=== PATIENT | female | born 1940 | race Caucasian/White ===

== ENCOUNTER 2024-03-27 08:02 | Emergency (ER) | payer MEDICARE, MEDICAID, SELFPAY ==
[2024-03-27 08:43] VITALS: BP 152/60; PULSE 97; RESP 18; TEMP 36.6; O2SAT 94
[2024-03-27 08:46] VITALS: BMI 30.1
--- NOTE | 2024-03-27 08:59 | XR_ITS ---
Examination: PA lateral chest 2 views Technique: Upright PA lateral chest 2 views Exam date and time: March 27, 2024 0918 hrs. Comparison May 06, 2014 Indications: Coughing beginning 15 days ago. Findings: Suspicious for early right upper lobe pneumonia Minor prominence left ventricle Moderate osteopenia Impression: Suspicious for early right upper lobe pneumonia
--- NOTE | 2024-03-27 09:00 | PD.EDURI ---
Upper Respiratory Inf. RME/HPI General Chief Complaint: Flu Like Symptoms Stated Complaint: Cough X 5 days Time Seen by Provider: 03/27/24 08:44 Arrival date/time: 03/27/24 08:02 This is a 83-year-old female that comes in with complaints of cough for approximately 1 week. Patient also complains of a runny nose, sore throat. Patient denies fever. Patient has a history of hypothyroidism, high blood pressure, and a hysterectomy in the past. Related Data Home Medications ?Medication ?Instructions ?Recorded ?Confirmed Levothyroxine * (SYNTHROID *) 75 mcg PO QDAY THYROID #0 tabs 05/06/14 amlodipine 10 mg tablet (Norvasc) 10 mg PO QDAY HBP #0 tabs 05/06/14 aspirin 81 mg chewable tablet 81 mg PO QDAY HEART ##0 05/06/14 esomeprazole magnesium 40 mg 40 mg PO QDAY GERD ##0 05/06/14 capsule,delayed release (Nexium) rosuvastatin 10 mg tablet (Crestor) 10 mg PO QDAY High Cholesterol #0 05/06/14 tabs Hydrocodone/Acetaminophen * (NORCO 1 tab PO Q4H PRN PAIN #0 tabs 05/01/15 5/325 *) baclofen 10 mg tablet 10 mg PO TID PRN ARTHRITIS #0 tabs 05/01/15 solifenacin 10 mg tablet (Vesicare) 10 mg PO QDAY PRN BLADDER SPASMS 05/01/15 #0 tabs Previous Rx's ?Medication ?Instructions ?Recorded Phenazopyridine * (PYRIDIUM *) 200 mg PO TIDPC #5 tabs 06/03/15 Promethazine/Phenylephrine/Codeine 10 ml PO QID PRN COUGH OR 03/30/16 SYRUP * (PHENERGAN VC W/ CODEINE CONGESTION #120 mL SYRUP *) azithromycin 250 mg tablet See Rx Instructions PO .COMPLEX #6 03/27/24 tabs Allergies Allergy/AdvReac Type Severity Reaction Status Date / Time NKA* Allergy Uncoded 06/03/15 11:03 Review of Systems Review of Systems Systems Reviewed: All systems reviewed, normal except as documented Past Medical History Past Medical History Comments PMH COMMENT: see hpi ED Exam General General appearance: Present alert and in no apparent distress Head Head exam: Present atraumatic Eye Eye exam: Present normal appearance, PERRL and EOMI ENT ENT exam: Present normal exam, normal oropharynx and mucous membranes moist Neck Neck exam: Present normal inspection, full ROM and trachea midline Chest Chest inspection: Present normal inspection and symmetric chest wall rise Respiratory Respiratory exam: Present normal lung sounds bilaterally Cardiovascular Cardiovascular exam: Present regular rate, normal rhythm and normal heart sounds Abdominal Exam Abdominal exam: Present soft Extremities Exam Extremities exam: Present normal inspection and full ROM Back Exam Back exam: Present normal inspection and full ROM Neurological Exam Neurological exam: Present alert, oriented X3 and CN II-XII intact Psychiatric Psychiatric exam: Present normal affect and normal mood Skin Skin exam: Present warm, dry, intact and normal color Course Quality Measures none Orders Category Date Time Status Bedside COVID-19 Antigen Test NOW Care 03/27/24 08:59 Completed XR chest 2V Stat Exams 03/27/24 08:59 Completed cefTRIAXone [Rocephin] 1,000 mg Med 03/27/24 10:11 Discontinued Lidocaine 1% 20 ml [Xylocaine 1% 20 ML] 2.1 ml IM X1 Vital Signs Vital signs: Vital Signs Temperature 97.8 F 03/27/24 08:43 Pulse Rate 97 03/27/24 08:43 Respiratory Rate 18 03/27/24 08:43 Blood Pressure 152/60 H 03/27/24 08:43 Pulse Oximetry (%) 94 L 03/27/24 08:43 Oxygen Delivery Method Room Air 03/27/24 08:43 Upper Respiratory Infection MDM Narrative MDM Narrative:: chest x ray: Findings: Suspicious for early right upper lobe pneumonia Minor prominence left ventricle Moderate osteopenia Impression: Suspicious for early right upper lobe pneumonia Patient given a dose of rocephin. Pt will be dc with po antibiotics. Pt told to follow up with primary provider in 1-2 days. Come back to ED if symptoms change or worsen. Patient data External records reviewed:: [facility] previous records Clinical information provided by:: patient Social determinants that could affect healthcare access:: none Patient has the following chronic illnesses:: see hpi How is presenting disease/condition affected by chronic disease/condition?: uneffected by Evaluation data The following diagnostics were reviewed and interpreted by me:: lab results and radiology exam(s) Lab and/or radiology exams considered but not ordered:: none Interpretation Summary: see note Medications / Prescriptions Medications or Prescriptions considered but not ordered:: none Medication administrations:: Medication Administration History Discontinued Medications Ceftriaxone Sodium 1,000 mg/ (Lidocaine HCl 2.1 ml) 0 mg IM X1 ONE Stop: 03/27/24 10:12 Last Admin: 03/27/24 10:30 Dose: 2.1 mg Documented By: NANDO dixon Consultations Consultation(s) initiated? (list below): No Diagnosis Upper Respiratory Differential Diagnosis: upper respiratory infection, viral infection, bronchitis and influenza Most likely diagnosis given after review of the tests above:: pneumonia Admission Indicated Admission indicated?: not indicated Admission Request Was there a request for admission?: No Disposition Plan Disposition Plan: Discharge Discharge Attestation Discharge Attestation: The patient and all family members were given an opportunity to ask questions and understood the discharge instructions. Discharge instructions specifically effects, indications for sooner follow up or return to the emergency department, and the expected course of current diagnosis. Patient condition: Stable Discharge Plan Plan Patient Disposition: HOME (Self Care) Patient condition on transfer: Stable Prescriptions/Referrals Prescriptions/Med Rec: New azithromycin 250 mg tablet See Rx Instructions .ROUTE .COMPLEX Qty: 6 0RF Rx Instructions: For 250 mg dose pack: take 500 mg today (day 1), then 250 mg for 4 days (days 2-5) No Action amlodipine [Norvasc] 10 MG tablet 10 mg PO QDAY Qty: 0 esomeprazole magnesium [Nexium] 40 MG capsule,delayed release(DR/EC) 40 mg PO QDAY Qty: 0 aspirin 81 MG tablet,chewable 81 mg PO QDAY Qty: 0 rosuvastatin [Crestor] 10 MG tablet 10 mg PO QDAY Qty: 0 Levothyroxine * (SYNTHROID *) 75 MCG tablet 75 mcg PO QDAY Qty: 0 solifenacin [Vesicare] 10 MG tablet 10 mg PO QDAY PRN (Reason: BLADDER SPASMS) Qty: 0 baclofen 10 MG tablet 10 mg PO TID PRN (Reason: ARTHRITIS) Qty: 0 Hydrocodone/Acetaminophen * (NORCO 5/325 *) 1 TAB tablet 1 tab PO Q4H PRN (Reason: PAIN) Qty: 0 Phenazopyridine * (PYRIDIUM *) 200 MG tablet 200 mg PO TIDPC Qty: 5 0RF Promethazine/Phenylephrine/Codeine SYRUP * (PHENERGAN VC W/ CODEINE SYRUP *) 120 ML syrup 10 ml PO QID PRN (Reason: COUGH OR CONGESTION) Qty: 120 0RF Referrals: Yu Gay MD [Primary Care Provider] - In 1 week Problem List Clinical Impression: Pneumonia, Cough Patient/Caregiver Discharge Instructions Discharge Activity: activity as tolerated Education Materials: ED Pneumonia (Adult) Additional Instructions: Drink plenty of fluids. May take Tylenol and ibuprofen for fever. Come back to the emergency room if symptoms change or worsen. Follow-up with primary provider in 1 to 2 days Print Language: Bangladeshi Stand Alone Forms: [employer] Award Info., Patient Portal Info Letter PA/[employer] Supervising Physician PA/[employer] Supervising Physician: alexander
[2024-03-27] MEDS: cefTRIAXone 1,000 MG, LIDOCAINE 1% 20 ML 2.1 ML IM (10:30)
[2024-03-27 11:05] VITALS: PULSE 88; O2SAT 99
== END 2024-03-27 11:05 | disposition home or self-care (01) ==
PROVIDERS: Emergency Provider Emergency Medicine; PCP Internal Medicine
DX: J18.9 Pneumonia, unspecified organism (principal)
CPT/HCPCS: 71046; 96372; 99283; J0696; J3490

== ENCOUNTER → 2024-06-29 | Outpatient (CLI) | payer MEDICARE, MEDICAID, SELFPAY ==
--- NOTE | 2024-06-29 09:40 | XR_ITS ---
Examination: Lumbar spine 3 views Technique one AP lateral coned lateral lower lumbar spine 3 views Exam date and time: June 29, 2024 1004 hours INDICATIONS: Left-sided low back pain 4 months FINDINGS: Severe osteopenia No lumbar fracture Advanced disc narrowing L5-S1 Moderate lumbar spondylosis IMPRESSION: Diffuse lumbar degenerative disc disease, advanced L5-S1
== END | disposition home or self-care (01) ==
PROVIDERS: PCP Nurse Practitioner Family; Referring Provider Nurse Practitioner Family; Visit Provider Nurse Practitioner Family
DX: M51.369 Other intervertebral disc degeneration, lumbar region without mention of lumbar back pain or lower extremity pain (principal); M51.379 Other intervertebral disc degeneration, lumbosacral region without mention of lumbar back pain or lower extremity pain
CPT/HCPCS: 72100

== ENCOUNTER → 2024-09-01 | Outpatient (CLI) | payer MEDICARE, MEDICAID, SELFPAY ==
--- NOTE | 2024-09-01 13:30 | XR_ITS ---
Examination: MRI lumbar spine without contrast Date and time of exam: September 01, 2024 1320 hours INDICATIONS: Low back pain radiating to the left hip 6 months numbness and paresthesias in the left toes Technique: Multiple MRI axial and sagittal sections lumbar spine. Sagittal T2-weighted images, TR 3500, TE 118 T1 weighted transverse sections, TR 688 T8.5, T2-weighted sagittal sections T1 weighted sagittal sections TR 621, TE 30 T2 axial sections, TR 4, 190, TE 84. Findings: Grade 1 listhesis L4 on L5 Mild to moderate disc narrowing L1-L2, L2-L3, L5-S1 Adequate marrow signal lumbar vertebral bodies No spondylolisthesis L5-S1 6 mm central lumbar disc bulge extending to the right foraminal region, contiguous with the S1 nerve roots and producing mild right L5 ganglionic compression L4-L5 moderate overall spinal stenosis, secondary to the anterolisthesis, 4 mm central lumbar disc bulge, facet arthropathy and thickening of ligamentum flavum L3-L4 no disc protrusion L2-L3 foraminal disc bulges but no ganglionic compression L1-L2 no disc protrusion IMPRESSION: L5-S1 6 mm central lumbar disc bulge contiguous with the right and left S1 nerve roots and producing mild right L5 ganglionic compression L4-L5 moderate overall spinal stenosis
== END | disposition home or self-care (01) ==
PROVIDERS: PCP Nurse Practitioner Family; Referring Provider Nurse Practitioner Family; Visit Provider Nurse Practitioner Family
DX: M51.370 Other intervertebral disc degeneration, lumbosacral region with discogenic back pain only (principal); M48.061 Spinal stenosis, lumbar region without neurogenic claudication; G95.20 Unspecified cord compression
CPT/HCPCS: 72148

== ENCOUNTER → 2024-10-05 | Outpatient (CLI) | payer MEDICARE, MEDICAID, SELFPAY ==
--- NOTE | 2024-10-05 16:00 | XR_ITS ---
Examination: Knee, right , 3 views Technique: Knee AP, lateral, oblique 3 views Date and time of exam: October 05, 2024, 1638 hours INDICATIONS: Right knee pain beginning 6 months ago. FINDINGS: Prominent osteopenia. Advanced narrowing medial joint space. Moderate osteoarthritis patellofemoral and lateral joint spaces No fracture IMPRESSION: Moderate to advanced tricompartment osteoarthritis
--- NOTE | 2024-10-05 16:00 | XR_ITS ---
Examination: Right ankle 2 views TECHNIQUE: AP lateral right ankle 2 views Date and time: October 05, 2024, 1659 hours. INDICATION: Right ankle pain beginning 6 weeks ago. FINDINGS: No fracture or dislocation. Moderate osteopenia. Mild to moderate osteoarthritis tibiotalar joint. 10 mm plantar bony calcaneal spur. Mild to moderate diffuse narrowing intertarsal joints IMPRESSION: Osteoarthritis as above 10 mm plantar bony calcaneal spur
== END | disposition home or self-care (01) ==
PROVIDERS: Referring Provider Nurse Practitioner Family; Visit Provider Nurse Practitioner Family
DX: M19.071 Primary osteoarthritis, right ankle and foot (principal); M77.31 Calcaneal spur, right foot; M17.11 Unilateral primary osteoarthritis, right knee
CPT/HCPCS: 73562; 73600

== ENCOUNTER → 2024-11-08 | Outpatient (CLI) | payer MEDICARE, MEDICAID, SELFPAY ==
--- NOTE | 2024-11-08 09:25 | XR_ITS ---
Examination: PA lateral chest 2 views TECHNIQUE: Upright PA lateral chest 2 views Date and time: November 08, 2024 0930 hours Comparison March 27, 2024 INDICATIONS: Chest pain shortness of breath beginning 3 weeks ago. FINDINGS: Normal heart size Moderate hyperexpansion No pneumonia or pulmonary edema Mild scarring in the lingular segment Kyphosis dorsal spine secondary to chronic osteoporotic mild wedging dorsal vertebral bodies IMPRESSION: COPD with moderate hyperexpansion No pneumonia or pulmonary edema
== END | disposition home or self-care (01) ==
PROVIDERS: PCP Nurse Practitioner Family; Referring Provider Nurse Practitioner Family; Visit Provider Nurse Practitioner Family
DX: J44.9 Chronic obstructive pulmonary disease, unspecified (principal)
CPT/HCPCS: 71046

== ENCOUNTER → 2025-01-12 | Outpatient (CLI) | payer MEDICARE, MEDICAID, SELFPAY ==
--- NOTE | 2025-01-12 14:39 | XR_ITS ---
Examination: Lumbar spine, 5 views Technique: Lumbar spine AP, lateral, coned lateral lower lumbar spine, standing lateral flexion standing extension 5 views Exam date and time: January 12, 2025, 1507 hours INDICATIONS: Lower back pain radiating to the left hip beginning 1 year ago FINDINGS: Severe osteopenia Grade 1 anterolisthesis L4 on L5 No lumbar fracture Moderate to advanced lumbar degenerative disc disease most prominent L1-L2, L5-S1 Marked reduced range of motion between flexion and extension IMPRESSION: No acute lumbar fracture
== END | disposition home or self-care (01) ==
LOC: CDIM 14:35
PROVIDERS: PCP Nurse Practitioner Family; Referring Provider Specialist; Visit Provider Specialist
DX: M54.50 Low back pain, unspecified (principal)
CPT/HCPCS: 72110

== ENCOUNTER 2025-03-20 13:08 | Outpatient (RCR) | payer MEDICARE, MEDICAID, SELFPAY ==
--- NOTE | 2025-03-20 13:46 | PT.OIERPT ---
PT OP Initial Eval Patient Information Outpatient Physical Therapy Treatment Date: 03/20/25 Visit Reasons: vertigo Medical Diagnosis: H81.10 Start of Care: 03/20/25 Date of Onset: 2 months ago Smoking Status Smoking Status: Never smoker Initial Assessment Subjective: Pt is 84 yr old female who reports dizziness that has worsened over the past 2 months. Pt uses a walker most days but today she left it at home. She feels like she's drunk when she walks and when she moves around and sometimes when she is sitting. This limits how far she walks and doesn't remember falling. PLOF: pt lives with her son and dtr and is independent with ADL's but limits with IADL's since she can't carry things. PMH: HTN, allergies, hysterectomy. Pt goal: to get rid of the dizziness Objective: [place]-Hallpike to R: negative to the L: negative Smooth pursuit: WNL Visual tracking: WNL C/S ArOM: slight dizziness with extension and flexion but no significant ROM deficits. Sitting up: dizziness BP: 139/89 in sitting Assessment: Pt presents with negative Mark Hallpike testing today and dizziness wasn't provoked with head position or laying supine which is not consistent with BPPV. Her ssx may be consistent with BP and/or vision issues. Pt doesn't need skilled therapy since she doesn't appear to have positional vertigo. Short Term and Care Home Goals Eval and D/C Treatment Plan Eval and D/C Certification Dates: 03/20/25 to 04/20/25 Procedure Charges OP PT Eval Mod Complex 30 minutes: Yes
== END 2025-04-05 23:59 | disposition home or self-care (01) ==
LOC: CPTX 13:08
PROVIDERS: PCP Nurse Practitioner Family; Referring Provider Nurse Practitioner Family; Visit Provider Nurse Practitioner Family
DX: H81.10 Benign paroxysmal vertigo, unspecified ear (principal)
CPT/HCPCS: 97162